=== PATIENT | male | born 2000 | race American Indian/Alaskan Native ===

== ENCOUNTER 2023-01-18 08:54 | Emergency (ER) | payer BC ==
[2023-01-18] MEDS ORDERED: Sodium Chloride 0.9% 10 ML Syringe FLUSH PRN (08:57)
[2023-01-18] MEDS ORDERED: Ondansetron 4 MG/2 ML SDV IVPUSH ONE (08:57)
[2023-01-18] MEDS ORDERED: Sodium Chloride 0.9% 1,000 ML IV SCH ×2 (09:00→11:00)
[2023-01-18] MEDS ORDERED: LORazepam 2 MG/ML SDV IVPUSH ONE (09:08)
[2023-01-18 09:16] LABS: BASOPHILS PERCENT AUTO 0.3 % (0.3-3.8); EOSINOPHILS ABSOLUTE AUTO 0.1 x10-3/uL (0.0-0.6); EOSINOPHILS PERCENT AUTO 0.6 % (0.1-6.8); HEMATOCRIT 40.7 % (38.3-50.1); HEMOGLOBIN 14.1 g/dL (12.9-17.7); LYMPHOCYTES ABSOLUTE AUTO 2.5 x10-3/uL (0.5-4.5); LYMPHOCYTES PERCENT AUTO 20.3 % (15.8-45.3); MEAN CORPUSCULAR HEMOGLOBIN 31.3 pg (27.0-33.3); MEAN CORPUSCULAR HGB CONC 34.6 g/dL (28.7-35.3); MEAN CORPUSCULAR VOLUME 90.5 fL (80.8-98.7); MEAN PLATELET VOLUME 9.1 fL (6.7-11.0); MONOCYTES ABSOLUTE AUTO 0.5 x10-3/uL (0.0-1.2); MONOCYTES PERCENT AUTO 4.1 % (5.5-15.2); NEUTROPHILS ABSOLUTE AUTO 9.1 x10-3/uL (1.7-6.9); NEUTROPHILS PERCENT AUTO 74.7 % (40.3-71.8); PLATELET COUNT,PLT 269 x10(3)uL (117-477); RED CELL DISTRIBUTION WIDTH 13.1 % (12.4-15.0); WHITE BLOOD CELL COUNT,WBC 12.2 x10-3/uL (3.2-10.1)
[2023-01-18 09:23] LABS: BLOOD UREA NITROGEN,BUN 18 mg/dL (7-18); BUN/CREATININE RATIO 16.4 (9-20); CALCIUM 9.6 mg/dL (8.6-10.2); CARBON DIOXIDE,CO2 21 mmol/L (21-32); CHLORIDE,CL 98 mmol/L (100-110); CREATININE 1.1 mg/dL (0.70-1.30); ESTIMATED GFR 97 mL/min (>60); GLUCOSE RANDOM 91 mg/dL (80-116); POTASSIUM,K 3.5 mmol/L (3.5-5.3); SODIUM,NA 137 mmol/L (135-145)
[2023-01-18 09:29] LABS: A/G RATIO 1.1; ALANINE AMINOTRANSFERASE,ALT 26 U/L (12-36); ALBUMIN 4.5 g/dL (3.5-5.2); ALKALINE PHOSPHATASE 80 IU/L (56-112); ASPARTATE AMNIOTRANSFERASE,AST 20 IU/L (5-25); BILIRUBIN TOTAL 1.4 mg/dL (0.1-1.3); PROTEIN TOTAL,TP 8.7 g/dL (6.0-8.0)
[2023-01-18] MEDS: Prochlorperazine 10 MG/2 ML SDV IVPUSH ONE ×2 (10:16→20:30)
[2023-01-18 11:13] LABS: LACTIC ACID 0.6 mmol/L (0.4-2.0)
== END 2023-01-18 12:16 | disposition home or self-care (01) ==
LOC: FB.ED 08:54
DX: K52.9 Noninfective gastroenteritis and colitis, unspecified (principal); E86.0 Dehydration
CPT/HCPCS: 36415; 71045; 80053; 83605; 85025; 93005; J2060; J2405; J7030; 96361; 96374; 96375; 99284-25; J0780

== ENCOUNTER 2023-06-18 09:29 | Observation (INO) | payer SELFPAY ==
[2023-06-18 09:57] LABS: BASOPHILS PERCENT AUTO 0.3 % (0.3-3.8); EOSINOPHILS ABSOLUTE AUTO 0.1 x10-3/uL (0.0-0.6); HEMATOCRIT 41.1 % (38.3-50.1); LYMPHOCYTES ABSOLUTE AUTO 1.3 x10-3/uL (0.5-4.5); LYMPHOCYTES PERCENT AUTO 16.7 % (15.8-45.3); MEAN CORPUSCULAR HEMOGLOBIN 32.1 pg (27.0-33.3); MEAN CORPUSCULAR HGB CONC 34.1 g/dL (28.7-35.3); MEAN PLATELET VOLUME 9.7 fL (6.7-11.0); MONOCYTES ABSOLUTE AUTO 0.2 x10-3/uL (0.0-1.2); MONOCYTES PERCENT AUTO 3.1 % (5.5-15.2); NEUTROPHILS ABSOLUTE AUTO 6.2 x10-3/uL (1.7-6.9); NEUTROPHILS PERCENT AUTO 78.9 % (40.3-71.8); PLATELET COUNT,PLT 167 x10(3)uL (117-477); RED BLOOD CELL COUNT 4.38 x10(6)uL (3.90-5.90); RED CELL DISTRIBUTION WIDTH 12.6 % (12.4-15.0); WHITE BLOOD CELL COUNT,WBC 7.9 x10-3/uL (3.2-10.1)
[2023-06-18 10:03] LABS: BLOOD UREA NITROGEN,BUN 12 mg/dL (7-18); CALCIUM 9.7 mg/dL (8.6-10.2); CARBON DIOXIDE,CO2 25 mmol/L (21-32); CHLORIDE,CL 103 mmol/L (100-110); EST CRCL DRUG DOSING (CG) 84.04 mL/min; ESTIMATED GFR 108 mL/min (>60); GLUCOSE RANDOM 124 mg/dL (80-116); POTASSIUM,K 3.7 mmol/L (3.5-5.3); SODIUM,NA 137 mmol/L (135-145)
[2023-06-18 10:08] LABS: A/G RATIO 1.1; ALANINE AMINOTRANSFERASE,ALT 19 U/L (12-36); ALBUMIN 4.1 g/dL (3.5-5.2); ALKALINE PHOSPHATASE 62 IU/L (56-112); ASPARTATE AMNIOTRANSFERASE,AST 21 IU/L (5-25); BILIRUBIN TOTAL 0.5 mg/dL (0.1-1.3); PROTEIN TOTAL,TP 7.8 g/dL (6.0-8.0)
[2023-06-18 10:16] LABS: TSH ULTRASENSITIVE 1.65 IU/mL (0.36-3.74)
[2023-06-18] MEDS ORDERED: Ondansetron 4 MG/2 ML SDV IVPUSH ONE (10:17)
[2023-06-18] MEDS ORDERED: Sodium Chloride 0.9% 1,000 ML IV ONE (10:17)
[2023-06-18] MEDS ORDERED: Sodium Chloride 0.9% 10 ML Syringe FLUSH PRN (10:17)
[2023-06-18] MEDS ORDERED: LORazepam 2 MG/ML SDV IVPUSH ONE (10:17)
[2023-06-18 10:18] LABS: SALICYLATE < 2.8 mg/dL (<2.8)
[2023-06-18 10:28] LABS: ACETAMINOPHEN < 2 ug/mL (<2); ETHANOL BLOOD MEDICAL < 0.03 % (<0.03)
[2023-06-18 12:05] LABS: AMPHETAMINES SCREEN, URINE NEGATIVE (NEGATIVE); BARBITURATE SCREEN,URINE NEGATIVE (NEGATIVE); BENZODIAZEPINES SCREEN,URINE NEGATIVE (NEGATIVE); BUPRENORPHINE SCREEN,URINE NEGATIVE (NEGATIVE); METHADONE SCREEN, URINE NEGATIVE (NEGATIVE); METHAMPHETAMINE SCREEN, URINE NEGATIVE (NEGATIVE); OXYCODONE SCREEN,URINE NEGATIVE (NEGATIVE); THC SCREEN,URINE POSITIVE (NEGATIVE)
[2023-06-18] MEDS ORDERED: Metoclopramide 10 MG/2 ML SDV IVPUSH ONE (12:19)
[2023-06-18] MEDS ORDERED: cefTRIAXone 2 GM Vial IVPUSH ONE (12:19)
[2023-06-18] MEDS ORDERED: cefTRIAXone 1 GM Vial IVPUSH ONE (12:45)
[2023-06-18] MEDS ORDERED: Sodium Chloride 0.9% 1,000 ML IV SCH (13:00)
[2023-06-18] MEDS ORDERED: Promethazine 12.5 MG in Sodium Chloride 0.9% 50 ML IV PRN (13:19)
[2023-06-18] MEDS ORDERED: Acetaminophen 325 MG Tab PO PRN (13:19)
[2023-06-18] MEDS: Pantoprazole 40 MG Vial IVPUSH SCH (14:26)
[2023-06-18] MEDS: Azithromycin 500 MG in Sodium Chloride 0.9% 250 ML IV SCH (14:35)
[2023-06-18] MEDS: Albuterol/Ipratropium 3.0-0.5 MG/3 ML Neb Soln NEB SCH ×2 (16:24→20:55)
[2023-06-18] MEDS: LORazepam 2 MG/ML SDV IV PRN (18:24)
[2023-06-18] MEDS: Spironolactone 50 MG Tab PO SCH (20:55)
[2023-06-18] MEDS: Estradiol 1 MG Tab PO SCH (20:57)
[2023-06-18] MEDS: Ondansetron 4 MG/2 ML SDV IV PRN (20:58)
[2023-06-18] MEDS: Sodium Chloride 0.9% 1,000 ML IV SCH (21:54)
[2023-06-19] MEDS: Pantoprazole 40 MG Vial IVPUSH SCH ×2 (01:44→13:39)
[2023-06-19] MEDS: Albuterol/Ipratropium 3.0-0.5 MG/3 ML Neb Soln NEB SCH ×4 (05:59→21:02)
[2023-06-19] MEDS: Sodium Chloride 0.9% 1,000 ML IV SCH (05:59)
[2023-06-19] MEDS: Ondansetron 4 MG/2 ML SDV IV PRN (06:12)
[2023-06-19 06:31] LABS: BASOPHILS PERCENT AUTO 0.3 % (0.3-3.8); EOSINOPHILS ABSOLUTE AUTO 0.1 x10-3/uL (0.0-0.6); EOSINOPHILS PERCENT AUTO 1.2 % (0.1-6.8); HEMATOCRIT 37.8 % (38.3-50.1); HEMOGLOBIN 12.7 g/dL (12.9-17.7); LYMPHOCYTES ABSOLUTE AUTO 2.3 x10-3/uL (0.5-4.5); LYMPHOCYTES PERCENT AUTO 31.4 % (15.8-45.3); MEAN CORPUSCULAR HGB CONC 33.6 g/dL (28.7-35.3); MEAN CORPUSCULAR VOLUME 95.3 fL (80.8-98.7); MEAN PLATELET VOLUME 9.4 fL (6.7-11.0); MONOCYTES ABSOLUTE AUTO 0.3 x10-3/uL (0.0-1.2); MONOCYTES PERCENT AUTO 3.7 % (5.5-15.2); NEUTROPHILS ABSOLUTE AUTO 4.5 x10-3/uL (1.7-6.9); NEUTROPHILS PERCENT AUTO 63.4 % (40.3-71.8); PLATELET COUNT,PLT 168 x10(3)uL (117-477); RED BLOOD CELL COUNT 3.97 x10(6)uL (3.90-5.90); RED CELL DISTRIBUTION WIDTH 12.8 % (12.4-15.0); WHITE BLOOD CELL COUNT,WBC 7.2 x10-3/uL (3.2-10.1)
[2023-06-19 06:35] LABS: BLOOD UREA NITROGEN,BUN 7 mg/dL (7-18); BUN/CREATININE RATIO 7.8 (9-20); CARBON DIOXIDE,CO2 23 mmol/L (21-32); CHLORIDE,CL 106 mmol/L (100-110); CREATININE 0.9 mg/dL (0.70-1.30); EST CRCL DRUG DOSING (CG) 106.37 mL/min; ESTIMATED GFR 122 mL/min (>60); GLUCOSE RANDOM 95 mg/dL (80-116); MAGNESIUM 1.7 mg/dL (1.8-2.5); POTASSIUM,K 3.3 mmol/L (3.5-5.3); SODIUM,NA 138 mmol/L (135-145)
[2023-06-19] MEDS ORDERED: Ketorolac 30 MG/ML SDV IVPUSH PRN (08:36)
[2023-06-19] MEDS ORDERED: Escitalopram 10 MG Tab PO SCH (09:00)
[2023-06-19] MEDS: Estradiol 1 MG Tab PO SCH ×2 (09:03→21:00)
[2023-06-19] MEDS: Spironolactone 50 MG Tab PO SCH ×2 (09:03→21:00)
[2023-06-19] MEDS: LORazepam 2 MG/ML SDV IV PRN (09:03)
[2023-06-19 11:19] LABS: BILIRUBIN,URINE NEGATIVE (NEGATIVE); GLUCOSE,URINE NORMAL (NORMAL); KETONES,URINE 15 mg/dL (NEGATIVE); LEUKOCYTE ESTERASE,URINE NEGATIVE (NEGATIVE); NITRITE,URINE NEGATIVE (NEGATIVE); OCCULT BLOOD,URINE NEGATIVE (NEGATIVE); PROTEIN,URINE NEGATIVE (NEGATIVE); UROBILINOGEN,URINE NORMAL (NEGATIVE)
[2023-06-19 11:26] LABS: APPEARANCE,URINE CLEAR (CLEAR); BACTERIA,URINE OCCASIONAL (NS); COLOR,URINE YELLOW (YELLOW); RBC,URINE NOT SEEN (0-5); SQUAMOUS EPITHELIAL CELLS,UR RARE (NS,R,O); WBC,URINE 0-5 (0-5)
[2023-06-19] MEDS ORDERED: cefTRIAXone 1 GM Vial IVPUSH SCH (13:00)
[2023-06-19] MEDS: Azithromycin 500 MG in Sodium Chloride 0.9% 250 ML IV SCH (13:46)
[2023-06-19] MEDS ORDERED: Sodium Chloride 0.9% 1,000 ML IV ONE (20:25)
[2023-06-20] MEDS: Pantoprazole 40 MG Vial IVPUSH SCH (02:54)
[2023-06-20] MEDS: Albuterol/Ipratropium 3.0-0.5 MG/3 ML Neb Soln NEB SCH (06:08)
== END 2023-06-20 07:20 | disposition left against medical advice (07) ==
LOC: FB.ED 09:29 → FB.MS 13:12
PROVIDERS: ADMIT Family Medicine; ATTEND Family Medicine
DX: J18.9 Pneumonia, unspecified organism (principal); F33.1 Major depressive disorder, recurrent, moderate; F64.9 Gender identity disorder, unspecified; F41.1 Generalized anxiety disorder; E86.0 Dehydration; F50.2 Bulimia nervosa; F19.10 Other psychoactive substance abuse, uncomplicated; F17.200 Nicotine dependence, unspecified, uncomplicated; Z20.822 Contact with and (suspected) exposure to COVID-19; Z79.899 Other long term (current) drug therapy
CPT/HCPCS: 36415; 71045; 74176; 80048; 80053; 80143; 80179; 80307; 81001; 83605; 83690; 83735; 84443; 84484; 85025; 85379; 86140; 87040; 93005; 94150; 94640; 96361; 96365; 96366; 96374; 96375; 96376; 99222; 99232; 99238; 99285-25; A9270-GY; C9113; G0378; J0456; J0696; J2060; J2405; J2765; J3490; J7030; J7050; J7620; U0002